=== PATIENT | male | born 1995 | race American Indian/Alaskan Native ===

== ENCOUNTER 2017-09-22 10:36 | Emergency (ER) | payer SELFPAY ==
[2017-09-22 11:14] VITALS: BP 159/83
--- NOTE | 2017-09-22 12:59 | Emergency Department Report ---
Blank Doc - Documentation Documentation: Patient is a 22-year-old -[place] male who is presenting with sore throat for the past 2 days. A brief physical exam patient does have anterior cervical lymph nodes and tonsillar swelling and exudates. A Monospot and rapid strep be performed. Patient also is complaining of athlete's foot cream can be given as an outpatient.
--- NOTE | 2017-09-22 14:19 | Emergency Department Report ---
HPI - General Chief Complaint: Wound/Laceration Time Seen by Provider: 09/22/17 12:50 - HPI HPI: Patient here for complaints of swollen glands in neck and sore throat with night sweats. He said he didn't take his temperature status noticed if he has a fever. He reports that his throat is red and swollen. Denies any recent exposure to strep. Patient is unsure of HIV status. He is also complaining of rash to both his feet between his toes. Reports itching. Sore throat is 8 out of 10 and rash between toes is 2 out of 10. Worse with movement and swallowing. No medication taken. He said he has been trying to keep the area clean and dry between his toes. Denies any swelling of tongue or difficulty breathing. Denies any nasal congestion or headache. Denies any neck pain or stiffness. Denies any shortness of breath. ED Past Medical Hx - Past Medical History Previous Medical History?: No - Surgical History Past Surgical History?: No - Family History Family history: no significant - Social History Smoking Status: Current Every Day Smoker Substance Use Type: None - Medications Home Medications: Home Medications Medication Instructions Recorded Confirmed Last Taken Type Clindamycin [Clindamycin CAP] 300 mg PO Q8H 10 Days #30 cap 09/22/17 Unknown Rx Ketoconazole 2% [Nizoral] 15 gm TP BID 7 Days #1 tube 09/22/17 Unknown Rx ED Review of Systems ROS: Stated complaint: WOUND Other details as noted in HPI Comment: All other systems reviewed and negative Constitutional: chills Eyes: denies: eye pain ENT: throat pain. denies: ear pain, dental pain, epistaxis, congestion Respiratory: no symptoms reported Cardiovascular: denies: chest pain, palpitations, dyspnea on exertion, edema, syncope, paroxysmal nocturnal dyspnea Gastrointestinal: denies: abdominal pain, nausea, vomiting, diarrhea, constipation Genitourinary: denies: dysuria, hematuria Musculoskeletal: arthralgia. denies: back pain, joint swelling, myalgia Skin: rash, pruritus Neurological: denies: headache, numbness, paresthesias, confusion, abnormal gait , vertigo Physical Exam - Physical Exam Vital Signs: Vital Signs 09/22/17 11:12 Temperature 98.9 F Pulse Rate 72 Respiratory 18 Rate Blood Pressure 159/83 O2 Sat by Pulse 99 Oximetry General: This is a 22-year-old male well-nourished well-developed in no acute distress. Physical Exam: Head: Normocephalic atraumatic Ears:BIateral TM pearly gutierrez. Neil EAC with normal exam. No mastoid bone tenderness. Mouth: Moist, positive pharyngeal erythema, swelling with exudate . UVULA midline and oral airways patent. No peritonsillar abscess Neck: Nontender to palpate, supple, normal range of motion. Positive anterior; adenopathy. No c-spine tenderness. Nose: Bilateral nasal mucosa normal exam. Maxillary and frontal sinuses non- tender to palpate. Eyes: Bilateral Sclerae and conjunctiva without injection. Bilateral pupils equal and reactive to light. Bilateral lids are normal. Normal accommodation.BEOMI Abdomen: Nontender to palpate in all quadrant, no CVA tenderness, no guarding or rebound tenderness. Normal bowel sounds in all quadrants Extremities: No clubbing, cyanosis or edema. +2 pulses to all extremities and no neurovascular compromise. Lungs: Clear to auscultate bilaterally, no rhonchi wheezes or rales. Normal work of breathing and no chest wall tenderness CV: S1, S2. Regular rate and rhythm negative murmur. Capillary refill is less than 3 seconds Skin: Noted dry flaky skin areas to both feet between toes. Moist, mild erythema. Tender to palpate Psych: Normal mood and behavior ED Course Vital Signs 09/22/17 11:12 Temperature 98.9 F Pulse Rate 72 Respiratory 18 Rate Blood Pressure 159/83 O2 Sat by Pulse 99 Oximetry - Reevaluation(s) Reevaluation #1: 09/22/17 14:44 Patient given Deltasone 60 mg by mouth and clindamycin 300 mg by mouth and emergency room. ED Medical Decision Making - Lab Data Rapid strep negative and culture pending Wallace negative - Medical Decision Making ED course: Patient here reports that he has sore throat, swollen glands and night sweats and also reports that he has rash between his toes does hurt in an itchy. Patient does not know his HIV status. Patient have a negative rapid strep with culture pending, based on Cent[facility] criteria patient with exudative pharyngitis, erythema to oropharynx, enlarged lymph nodes to anterior supply cold chain, chills without any respiratory symptoms, patient will be treated for strep pharyngitis. Wallace test was negative. Patient also has fungal infection between toes of both feet that appears to have a superimposed bacterial infection. I discussed the patient that if he has concern about his HIV status he will need to follow-up at [facility] for complete male physical exam to include STDs checked. Patient once to know if medication is going to take away symptoms today and I discussed with him that it takes at least 3-4 days for antibiotic to start work in and I cannot give him Bicillin because he is allergic to penicillin and all other pain medication to include acetaminophen and NSAIDs. He said that they make him swell up. I discussed patient is diagnosis, treatment plan and need to follow up as discussed and he voiced understanding. Patient is not happy with his he wants medication that will take all his symptoms away today. He received Deltasone 60 mg by mouth and clindamycin 300 mg by mouth for exudative pharyngitis and we'll cover bacterial infection to feet. Patient discharged home in stable condition with prescription for clindamycin, ketoconazole ointment for fungal infection, instructed to gargle with warm salt water for sore throat and to increase his fluid intake to decrease fever. Critical care attestation.: If time is entered above; I have spent that time in minutes in the direct care of this critically ill patient, excluding procedure time. ED Disposition Clinical Impression: Tinea pedis of both feet, Arthralgia of both feet, Exudative pharyngitis Cellulitis, toe Qualifiers: Laterality: unspecified laterality Qualified Code(s): L03.039 - Cellulitis of unspecified toe Disposition: DC- TO HOME OR SELFCARE Is pt being admited?: No Does the pt Need Aspirin: No Condition: Stable Instructions: Tinea Pedis (ED), Cellulitis (ED), Pharyngitis (ED), Strep Throat (ED), Arthralgia (ED) Additional Instructions: Please follow up with [facility] for primary care follow-up to include male physical examination ED testing. You can call today to schedule an appointment. Your strep test was negative today but cultures are still pending. I will treat for strep throat based on swollen oropharynx, redness with exudate, enlarged lymph nodes and chills. He can gargle warm salt water to relieve your throat. Use antifungal cream as prescribed Take antibiotic to cover throat infection and infection between his toes. Prescriptions: Clindamycin [Clindamycin CAP] 300 mg PO Q8H 10 Days #30 cap Ketoconazole 2% [Nizoral] 15 gm TP BID 7 Days #1 tube Referrals: PRIMARY CAREMD [Primary Care Provider] - 09/26/17 [facility] [Outside] - 09/26/17 FELISA PHILIP MD [Staff Physician] - 09/26/17 Forms: Accompanied Note, Work/School Release Form(ED)
[2017-09-22] MEDS ORDERED: DELTASONE PO ONE (14:31)
[2017-09-22] MEDS ORDERED: CLEOCIN PO ONE (14:31)
== END 2017-09-22 15:01 | disposition home or self-care (01) ==
LOC: ED 10:36
DX: L03.039 Cellulitis of unspecified toe (principal); F17.200 Nicotine dependence, unspecified, uncomplicated
CPT/HCPCS: 36415; 86308; 87116; 87430; 99282; J7512